=== PATIENT | male | born 2005 | race Hispanic/Latino ===

== ENCOUNTER 2024-03-09 11:55 | Emergency (ER) | payer OTHER ==
[2024-03-09 13:17] LABS: Bacteria/HPF None Seen HPF (None Seen); Bilirubin Negative (Negative); Blood, Urine Negative (Negative); CAUTI Indications for Culture Dysuria,urgency,freq; Clarity Clear (Clear); Glucose, Urine (Dipstick) Normal (Negative); Ketone, Urine Negative (Negative); Leukocyte Negative Leu/uL (Negative); Nitrite Negative (Negative); Protein, Urine (Dipstick) Negative (Neg-Trace); RBC/HPF 0-3 HPF (0-3); Specific Gravity, Urine 1.015 (1.002-1.036); Squamous Epithelial None Seen HPF (0-3); Urobilinogen Normal mg/dL (Less than 2); WBC/HPF 0-3 HPF (0-3)
[2024-03-09 13:22] LABS: Urine Culture Reflex No No
[2024-03-10 06:25] LABS: Chlam.trachomatis by PCR,Urine Not Detected (NotDetected); GC N.gonorrhoeae PCR,UrineVOID Not Detected (NotDetected)
== END 2024-03-09 13:42 | disposition home or self-care (01) ==
LOC: ERS 11:55
DX: N50.811 Right testicular pain (principal); Z55.6 Problems related to health literacy
CPT/HCPCS: 76870; 81001; 87491; 87591; 93976